=== PATIENT | female | born 1970 | race Caucasian/White ===

== ENCOUNTER 2021-06-15 10:16 | Outpatient (CLI) | payer OTHER | END 2021-06-15 10:17 | disposition short-term general hospital (02) | LOC: EMS 10:16 | DX: R11.2 Nausea with vomiting, unspecified (principal); R51.9 Headache, unspecified | CPT/HCPCS: A0425; A0427 ==

== ENCOUNTER 2022-07-15 06:33 | Outpatient (CLI) | payer OTHER | END 2022-07-15 23:59 | disposition EMS.NT | LOC: EMS 06:33 | DX: F41.9 Anxiety disorder, unspecified (principal) ==